=== PATIENT | male | born 1990 | race African-American/Black ===

== ENCOUNTER 2020-09-03 10:47 | Emergency (ER) | payer MEDICAID, OTHER ==
[~2020-09-03] VITALS: Ht 177.8 cm; Wt 91.0 kg
[2020-09-03] MEDS: SODIUM CHLORIDE 0.9% 1,000 ML IV ONE ×2 (11:55→14:36)
[2020-09-03 11:57] LABS: BASOPHILS % 0.7 % (0.0-2.0); EOSINOPHILS % 0.6 % (0.0-5.0); HEMATOCRIT. 44.3 % (42.0-52.0); HEMOGLOBIN. 15.5 g/dL (14.0-18.0); LYMPHOCYTES % 32.9 % (20.0-50.0); MEAN CORPUSCULAR HEMOGLOBIN 31.5 pg (28.0-32.0); MEAN CORPUSCULAR VOLUME 89.8 fL (80.0-94.0); MEAN PLATELET VOLUME 7.6 fl (7.4-10.4); MONOCYTES % 7.4 % (2.0-8.0); NEUTROPHILS % 58.4 % (40.0-76.0); PLATELET 295 x1000/uL (130-400); RED BLOOD CELL COUNT 4.93 mill/uL (4.7-6.1)
[2020-09-03 11:57] LABS: CLARITY URINE CLEAR (CLEAR); COLOR URINE YELLOW (YELLOW); KETONES URINE NEGATIVE (NEGATIVE); LEUKOCYTE ESTERASE URINE NEGATIVE (NEGATIVE); NITRITE URINE NEGATIVE (NEGATIVE); OCCULT BLOOD URINE NEGATIVE (NEGATIVE); PH URINE 5.5 (4.5-8.0); PROTEIN URINE NEGATIVE (NEGATIVE); SPECIFIC GRAVITY URINE 1.008 (1.005-1.030); UROBILINOGEN URINE 0.2 E.U./dL (0.2-1.0)
[2020-09-03 12:00] LABS: CHLORIDE 105 mEq/L (98-107)
[2020-09-03] MEDS ORDERED: LORAZEPAM 2MG/ML CPJ IM ONE (12:00)
[2020-09-03] MEDS ORDERED: HALOPERIDOL LACTATE 5MG/ML VIAL IM ONE (12:00)
[2020-09-03] MEDS ORDERED: DIPHENHYDRAMINE 50MG/ML VIAL IM ONE (12:00)
[2020-09-03 12:04] LABS: ETHANOL BLOOD 212 mg/dL
[2020-09-03 12:14] LABS: METHADONE URINE SCREEN NEGATIVE (NEGATIVE); OPIATES URINE SCREEN NEGATIVE (NEGATIVE); PHENCYCLIDINE URINE SCREEN NEGATIVE (NEGATIVE)
[2020-09-03 12:15] LABS: *AMPHETAMINES SCREEN URINE PRESUMTIVE POSITIVE (NEGATIVE); *BARBITURATES SCREEN URINE NEGATIVE (NEGATIVE); *BENZODIAZEPINES SCREEN URINE PRESUMTIVE POSITIVE (NEGATIVE); *COCAINE SCREEN URINE NEGATIVE (NEGATIVE); CANNABINOID URINE SCREEN PRESUMTIVE POSITIVE (NEGATIVE)
[2020-09-03] MEDS ORDERED: ZIPRASIDONE MESYLATE 20MG/VIAL IM ONE (12:15)
[2020-09-03 21:40] VITALS: BP 109/77
== END 2020-09-03 21:48 | disposition home or self-care (01) ==
LOC: ER 11:00
DX: R45.1 Restlessness and agitation (principal); F12.10 Cannabis abuse, uncomplicated; F15.10 Other stimulant abuse, uncomplicated
CPT/HCPCS: 36415; 71045; 73090; 80053; 80305; 80320; 81003; 84443; 85025; 87426; 96360; 96372; 99285; J1200; J1630; J2060; J3486; J7030; G0480